=== PATIENT | female | born 1975 | race Two or more races ===

== ENCOUNTER 2020-06-03 10:47 | Emergency (ER) | payer SELFPAY ==
[2020-06-03 11:00] VITALS: BP 133/85
--- NOTE | 2020-06-03 11:21 | ER Document Report ---
ED Medical Screen (RME) - General Chief Complaint: Ear Pain Stated Complaint: EAR PAIN - HPI Notes: 06/03/20 11:17 Rapid Medical Exam HPI: Pt is a 44yo female c/o bilat ear pain, throat pain that radiates down chest to epigastric area. pain is burning. pt shows us documents where she had an EGD done a few months ago which noted erythematous gastric mucosa and irregular z line ( possible barrets esophagus). she is taking omeprazole w/o relief of symptoms. no sob, extertional chest pain, cough, fevers, n/v/d, or dysuria. Physical Exam: GENERAL: Well-appearing, well-nourished and in no acute distress. HEAD: Atraumatic, normocephalic. ENT: Moist mucous membranes. RESP: Respirations even and unlabored CV- Regular rate. NEURO: No focal neurological deficits. Moves all extremities spontaneously and on command. My involvement in this patients care was limited to a rapid initial assessment. A comprehensive ED assessment and evaluation of the patient, analysis of test results, treatment, and completion of the medical decision making process will be performed by other ER providers. 06/03/20 11:24 - Related Data Allergies/Adverse Reactions: No Known Allergies Allergy (Unverified 06/03/20 11:16) Physical Exam - Vital signs Vitals: Temp Pulse Resp BP Pulse Ox 98.6 F 81 16 133/85 H 98 06/03/20 10:59 06/03/20 10:59 06/03/20 10:59 06/03/20 10:59 06/03/20 10:59 Course - Vital Signs Vital signs: Temp Pulse Resp BP Pulse Ox 98.6 F 81 16 133/85 H 98 06/03/20 10:59 06/03/20 10:59 06/03/20 10:59 06/03/20 10:59 06/03/20 10:59
[2020-06-03 12:09] LABS: APPEARANCE,URINE CLEAR; BILIRUBIN,URINE NEGATIVE (NEGATIVE); COLOR,URINE YELLOW; GLUCOSE, URINE NEGATIVE (NEGATIVE); KETONES,URINE NEGATIVE (NEGATIVE); LEUKOCYTE ESTERASE,URINE NEGATIVE (NEGATIVE); NITRITE,URINE NEGATIVE (NEGATIVE); PROTEIN,URINE NEGATIVE (NEGATIVE); URINE SPECIFIC GRAVITY 1.012
[2020-06-03 12:12] LABS: ABSOLUTE LYMPHOCYTES (AUTO) 2.2 10^3/uL (0.5-4.7); ABSOLUTE MONOCYTES (AUTO) 0.3 10^3/uL (0.1-1.4); ABSOLUTE NEUT (AUTO) 4.6 10^3/uL (1.7-8.2); BASOPHILS % (AUTO) 0.3 % (0-2); EOSINOPHILS % (AUTO) 0.4 % (0-6); HEMATOCRIT 36.9 % (36.0-47.0); HEMOGLOBIN 12.6 g/dL (12.0-15.5); LYMPHOCYTES % (AUTO) 30.6 % (13-45); MEAN CORPUSCULAR HEMOGLOBIN 27.9 pg (27.0-33.4); MEAN CORPUSCULAR HGB CONC 34.2 g/dL (32.0-36.0); MEAN CORPUSCULAR VOLUME 82 fl (80-97); MONOCYTES % (AUTO) 4.7 % (3-13); PLATELET COUNT 260 10^3/uL (150-450); RED BLOOD COUNT 4.52 10^6/uL (3.72-5.28); RED CELL DISTRIBUTION WIDTH 13.8 % (11.5-14.0); TOTAL CELLS COUNTED % (AUTO) 100 %; WHITE BLOOD COUNT 7.2 10^3/uL (4.0-10.5)
--- NOTE | 2020-06-03 12:12 | ER Document Report ---
ED GI/ - General Chief Complaint: Abdominal Pain Stated Complaint: EAR PAIN Time Seen by Provider: 06/03/20 11:57 Primary Care Provider: LEEANNA DOUGLASS MD [ACTIVE STAFF] - Follow up as needed Notes: Patient is a 44-year-old female who comes emergency department for chief complaint of pain the upper abdomen that radiates up into her throat. She states symptoms are much worse at night when lying down. She states is a discomfort radiates all the way into her throat and then up to her ears. She denies vomiting, nausea, flank pain, difficulty breathing, fever/chills, cough, exertional chest pain, or complaints otherwise. She is on Metformin and omeprazole. She had an EGD performed in March [address] Douglass that showed "an erythematous gastric mucosa and irregular Z-line". She denies smoking, alcohol, surgeries. She denies medical history otherwise. at bedside interpreting for Turkish, I offered an rod drawer and they agreed, I will return with an rod drawer. - Related Data Allergies/Adverse Reactions: No Known Allergies Allergy (Unverified 06/03/20 11:16) Home Medications: metformin. omeprazole Past Medical History - General Information source: Patient - Social History Smoking Status: Never Smoker Frequency of alcohol use: None Drug Abuse: None Lives with: Family Family History: Reviewed & Not Pertinent GI Medical History: Reports: Hx Gastritis, Hx Gastroesophageal Reflux Disease - GERD with possible Davis's esophagus Surgical Hx: Negative - Immunizations Immunizations up to date: Yes Hx Diphtheria, Pertussis, Tetanus Vaccination: Yes Review of Systems - Review of Systems Constitutional: No symptoms reported EENT: No symptoms reported Cardiovascular: No symptoms reported Respiratory: No symptoms reported Gastrointestinal: See HPI Genitourinary: No symptoms reported Female Genitourinary: No symptoms reported Musculoskeletal: No symptoms reported Skin: No symptoms reported Hematologic/Lymphatic: No symptoms reported Neurological/Psychological: No symptoms reported Physical Exam - Vital signs Vitals: Temp Pulse Resp BP Pulse Ox 98.6 F 81 16 133/85 H 98 06/03/20 10:59 06/03/20 10:59 06/03/20 10:59 06/03/20 10:59 06/03/20 10:59 - Notes Notes: GENERAL: Alert, interacts well. No acute distress. Smiling well-appearing HEAD: Normocephalic, atraumatic. EYES: Pupils equal, round, and reactive to light. Extraocular movements intact. ENT: Oral mucosa moist, tongue midline. Oropharynx unremarkable. Airway patent. NECK: Full range of motion. Supple. Trachea midline. No lymphadenopathy. LUNGS: Clear to auscultation bilaterally, no wheezes, rales, or rhonchi. No respiratory distress. Non-tender chest wall. HEART: Regular rate and rhythm. No murmur ABDOMEN: There is some generalized tenderness in the epigastric and left upper quadrant, this is mild. No severe tenderness or guarding. No rigidity. Remaining abdomen unremarkable. EXTREMITIES: Moves all 4 extremities spontaneously. No edema, normal radial and dorsalis pedis pulses bilaterally. No cyanosis. BACK: no cervical, thoracic, lumbar midline tenderness. No saddle anesthesia, normal distal neurovascular exam. Moves all extremities in full range of motion. NEUROLOGICAL: Alert and oriented x3. Normal speech. Cranial nerves II through XII grossly intact. Strength 5/5 in all extremities. PSYCH: Normal affect, normal mood. SKIN: Warm, dry, normal turgor. No rashes or lesions noted. Course - Re-evaluation Re-evalutation: Patient has minimal upper abdominal pain in the epigastric and left upper quadrant areas. Right upper quadrant appears benign. Lower abdomen completely benign. Patient symptoms are worse with lying flat and in the morning. No guarding or rigidity, patient is very well-appearing and smiling. Low suspicion of acute abdomen. CBC, chemistry reviewed and unremarkable. Lipase unremarkable. Urinalysis unremarkable, test negative. I discussed with patient, did discuss an ultrasound of the upper abdomen although this was deferred after discussing everything. Strong suspicion is still gastritis and reflux with esophageal spasm. Discussed treatment, expectations, she states she will follow close with Dr. Douglass as already scheduled, discussed return precautions. Patient states appreciation and agreement. This was performed with [employer] [facility]. - Vital Signs Vital signs: Temp Pulse Resp BP Pulse Ox 98.6 F 81 16 133/85 H 98 06/03/20 10:59 06/03/20 10:59 06/03/20 10:59 06/03/20 10:59 06/03/20 10:59 - Laboratory Results Result Diagrams: 06/03/20 11:48 06/03/20 11:48 Laboratory Results Interpreted: 06/03/20 06/03/20 11:48 11:48 BUN 6 L Glucose 112 H Urine Urobilinogen 2.0 H Critical Laboratory Results Reviewed: No Critical Results - Radiology Results Critical Radiology Results Reviewed: No Critical Results Discharge - Discharge Clinical Impression: Upper abdominal pain, Throat pain Condition: Stable Disposition: HOME, SELF-CARE Instructions: Oral Narcotic Medication ([facility]) Additional Instructions: Based on your tests and your exam your symptoms seem to be coming from your stomach and your esophagus (food tube). We need to treat the inflammation for you to feel better. Continue to take the omeprazole, also take the Carafate and the famotidine prescribed. You can take Tylenol for pain, you can take the Bucks for bad pain only if needed (see the listed precautions). Remember to avoid caffeine, spicy food, alcohol, smoking, NSAIDs such as ibuprofen and aspirin. Please follow-up with Dr. Douglass closely to make sure you are improving. Come back if you are worse including throwing up, vomiting blood, blood in your poop, fever, pain that gets much worse, or if something is not right. Segn casie pruebas y whitehead examen, casie sntomas parecen provenir de whitehead estmago y whitehead esfago (tubo de alimentacin). Necesitamos tratar la inflamacin para que se sienta mejor. Contine tomando el omeprazol, tambin tome el Carafate y la famotidina recetada. Puede du Tylenol para el dolor, puede du Bucks para el dolor intenso solo si es necesario (consulte las precauciones enumeradas). Recuerde evitar la cafena, la comida picante, el alcohol, el tabaquismo, los JACKSON mary jane el ibuprofeno y la aspirina. Odette un seguimiento de cerca con el Dr. Douglass para asegurarse de que est mejorando. Regrese si est peor, incluyendo vmitos, vmitos con raymond, raymond en las heces, fiebre, dolor que empeora o si algo no est andrae. Prescriptions: Sucralfate [Carafate 1 gm Tablet] 1 gm PO QID #40 tablet Famotidine [Pepcid 20 mg Tablet] 20 mg PO BID #20 tablet Referrals: LEEANNA DOUGLASS MD [ACTIVE STAFF] - Follow up as needed
[2020-06-03 12:24] LABS: ALBUMIN 4.2 g/dL (3.5-5.0); ALKALINE PHOSPHATASE 85 U/L (38-126); ANION GAP 8 (5-19); ASPARTATE AMINO TRANSFERASE 21 U/L (14-36); BILIRUBIN,DIRECT 0.1 mg/dL (0.0-0.4); BILIRUBIN,TOTAL 0.4 mg/dL (0.2-1.3); BLOOD UREA NITROGEN 6 mg/dL (7-20); CALCIUM 9.4 mg/dL (8.4-10.2); CARBON DIOXIDE 25 mmol/L (22-30); CHLORIDE 106 mmol/L (98-107); GLUCOSE 112 mg/dL (75-110); TOTAL PROTEIN 8.2 g/dL (6.3-8.2)
[2020-06-03] MEDS ORDERED: HYDROCODONE/ACETAMINOPHEN 5-325 MG (6 TAB/ER DISP) PO PRN (13:15)
== END 2020-06-03 13:46 | disposition home or self-care (01) ==
LOC: ER 10:47
DX: R10.10 Upper abdominal pain, unspecified (principal); R10.13 Epigastric pain; R07.0 Pain in throat; K21.9 Gastro-esophageal reflux disease without esophagitis; Z79.84 Long term (current) use of oral hypoglycemic drugs
CPT/HCPCS: 36415; 80053; 81001; 81025; 83690; 85025; 99283